=== PATIENT | female | born 1940 | race American Indian/Alaskan Native ===

== ENCOUNTER 2016-07-03 08:35 | Day surgery (SDC) | payer MEDICARE ==
--- NOTE | 2016-07-03 09:04 | Short Stay Summary ---
Short Stay Documentation Date of service: 07/03/16 Narrative H&P: This is a follow-up appointment for this patient, a 75 year old /Black female, after a previous visit on 07/28/2015 , for an evaluation for anemia. She was to have an EGD/Colonoscopy, but has had some issues with CHF/ COPD. She is currently residing in [facility]. She last saw Dr. Mcmillan in 2015. Review of her bloodwork from 03/16 revealed a Hb of 10.0 with an MCV of 87. She is currently on Xarelto. There are no reports of rectal bleeding or black stools. Bhavna denies any abdominal pain, nausea/vomiting, fevers, chills or night sweats. PMHx: Anemia, COPD, CHF PSHx: None All: ASA Meds: See list SocHx: Lives in [place] PE Gen: NAD HEENT: No icterus CVS: RRR Lungs: CTA Abd: Soft, NT Ext: No edema Plan: EGD/Colon, to evaluate for anemia - History H&P: obtained from office - Allergies and Medications Current Medications: Allergies No Known Allergies Allergy (Unverified 08/31/15 10:06) Home Medications Medication Instructions Recorded Confirmed Last Taken Type ALPRAZolam [Xanax TAB] 0.25 mg PO QDAY 01/25/16 01/25/16 Unknown History Acetaminophen 325 mg PO PRN 01/25/16 01/25/16 Unknown History Albuterol Sulfate [Ventolin HFA] 2 puff IH Q4H PRN 01/25/16 01/25/16 Unknown History Atorvastatin Calcium [Lipitor] 20 mg PO QDAY 01/25/16 01/25/16 Unknown History Calcium Carbonate [Oscal] 1,250 mg PO QDAY 01/25/16 01/25/16 Unknown History Ciprofloxacin HCl [Ciprofloxacin 500 mg PO Q12HR #14 tab 01/25/16 Unknown Rx TAB] Docusate Sodium [Colace] 100 mg PO BID PRN 01/25/16 01/25/16 Unknown History Ferrous Sulfate [Feosol] 325 mg PO BID 01/25/16 01/25/16 Unknown History Furosemide [Lasix] 20 mg PO QDAY 01/25/16 01/25/16 Unknown History Haloperidol [Haldol] 5 mg PO BID 01/25/16 01/25/16 Unknown History Insulin Glargine [Lantus] 10 unit SUB-Q QHS 01/25/16 01/25/16 Unknown History Insulin Lispro [Humalog 100 0 units SQ AC 01/25/16 01/25/16 Unknown History UNITS/ML Kwikpen] Ipratropium/Albuterol Sulfate 1 ampul IH Q8HR 01/25/16 01/25/16 Unknown History [Duoneb 0.5 mg-3 mg/3 ml Soln] Melatonin 3 mg PO PRN 01/25/16 01/25/16 Unknown History Metoprolol Tartrate 75 mg PO QDAY 01/25/16 01/25/16 Unknown History Potassium Chloride [K-Dur] 20 meq PO QDAY 01/25/16 01/25/16 Unknown History Rivaroxaban [Xarelto] 0 mg PO QDAY 01/25/16 01/25/16 Unknown History Valsartan [Diovan] 160 mg PO BID 01/25/16 01/25/16 Unknown History amLODIPine [Norvasc] 10 mg PO DAILY 01/25/16 01/25/16 Unknown History hydrALAZINE [Apresoline] 25 mg PO QDAY 01/25/16 01/25/16 Unknown History predniSONE [Deltasone] 20 mg PO QDAY 01/25/16 01/25/16 Unknown History traMADol [Ultram] 50 mg PO Q4HR PRN 01/25/16 01/25/16 Unknown History - Brief post op/procedure progress note Date of procedure: 07/03/16 Pre-op diagnosis: chronic blood loss/anemia Post-op diagnosis: same Procedure: EGD/Colon EGD: Normal esophagus Stomach: Erythematous mucosa diffusely; biopsied Duodenum: Normal; biopsied Colon Poor prep. Small int hemorrhoids. No major lesions seen, but small lesions could've been missed. Rec: 1) Return to NH 2) Resume Xarelto today 3) F/U path 4) Further w/u based on path Anesthesia: MAC Findings: See above note Surgeon: KEV AREVALO Estimated blood loss: minimal Pathology: list (duodenum, antrum) Specimen disposition: to lab Condition: stable - Disposition Condition at discharge: Good Disposition: DISCHARGED TO HOME OR SELFCARE
--- NOTE | 2016-07-03 09:34 | Anesthesia Day of Surgery ---
Anesthesia Day of Surgery - Day of Surgery Patient Examined: Yes Patient H&P Reviewed: Yes Patient is NPO: Yes
--- NOTE | 2016-07-03 09:34 | Anesthesia Consultation ---
Anesthesia Consult and Med Hx Date of service: 07/03/16 - Airway Anesthetic Teeth Evaluation: Poor, Dentures ROM Head & Neck: Adequate Mental/Hyoid Distance: Inadequate Mallampati Class: Class III Intubation Access Assessment: Probably Good - Pulmonary Exam CTA: Yes - Cardiac Exam Cardiac Exam: RRR - Pre-Operative Health Status ASA Pre-Surgery Classification: ASA3 Proposed Anesthetic Plan: MAC - Pulmonary Hx Smoking: Yes (>50 years) Hx Asthma: Yes COPD: Yes (severe, increased resp effort, 2L/Min@ home) - Cardiovascular System Hx Hypertension: Yes Hx Coronary Artery Disease: Yes Hx Cardia Arrhythmia: Yes (afib) - Central Nervous System Hx Psychiatric Problems: Yes (paranoid schizophrenia, dementia) - Gastrointestinal Hx Gastroesophageal Reflux Disease: No - Endocrine Hx Insulin Dependent Diabetes: Yes - Hematic Hx Anemia: Yes Hx Sickle Cell Disease: No - Other Systems Hx Alcohol Use: No Hx Substance Use: No Hx Cancer: No Hx Obesity: No - Additional Comments Anesthesia Medical History Comments: macular degenration
[2016-07-03] MEDS ORDERED: D50W (25GM) IV ONE (09:46)
[2016-07-03] MEDS ORDERED: NACL 0.9% 1000 ML 1,000 ML IV SCH (10:00)
[2016-07-03] MEDS ORDERED: DIPRIVAN 10 MG/ML IV ONE ×2 (10:43)
--- NOTE | 2016-07-03 10:43 | Post Anesthesia Evaluation ---
- Post Anesthesia Evaluation Patient Participated: Yes Airway Patent: Yes Stable Respiratory Function: Yes Nausea/Vomiting: No Temp > 96.8F: Yes Pain Manageable: Yes Adequeate Hydration: Yes Anesthesia Complications: No Block Receding Appropriately: Not Applicable Patient on Ventilator: No
--- NOTE | 2016-07-03 10:46 | Operative Report ---
PROCEDURE PERFORMED: Upper endoscopy with biopsy. PREOPERATIVE DIAGNOSES: Chronic blood loss, anemia. POSTOPERATIVE DIAGNOSES: Chronic blood loss, anemia. ANESTHESIA: Via monitored anesthesia care. DESCRIPTION OF PROCEDURE: After informed consent was obtained, the patient was placed in left lateral decubitus position. Standard Fujinon upper endoscope was inserted into the mouth and advanced to the second portion of duodenum. Scope was then carefully withdrawn and mucosa was carefully examined. FINDINGS: Esophagus: Appeared normal. Stomach: There was evidence of a diffusely erythematous mucosa in the gastric antrum. Cold forceps biopsies were taken and sent for pathology. The pylorus appeared patulous, possibly consistent with prior peptic ulcer disease. No acute ulcer was identified. Duodenum: Appeared normal up to the second portion. Cold forceps biopsies were taken and sent for pathology. COMPLICATIONS: None. ESTIMATED BLOOD LOSS: Minimal. IMPRESSION: A 75-year-old woman with chronic blood loss/anemia, status post upper endoscopy today. Etiology is not identified, but incidental findings of erythematous gastric mucosa was seen. RECOMMENDATIONS: 1. Follow up pathology. 2. Proceed with colonoscopy. [facility]# [id number] PSP/NTS
[2016-07-03 10:56] VITALS: BP 111/79
--- NOTE | 2016-07-03 11:25 | Operative Report ---
PROCEDURE PERFORMED: Colonoscopy. PREOPERATIVE DIAGNOSES: Chronic blood loss, anemia. POSTOPERATIVE DIAGNOSIS: Internal hemorrhoids. ANESTHESIA: Via monitored anesthesia care. DESCRIPTION OF PROCEDURE: After informed consent was obtained, the patient was placed in left lateral decubitus position. Standard Fujinon colonoscope was inserted into the anus and advanced to the cecum, confirmed by the appendiceal orifice and ileocecal valve. Scope was then carefully withdrawn, and mucosa was carefully examined. The quality of prep was poor. FINDINGS: There was evidence of small internal hemorrhoids on retroflexion. The exam was otherwise unremarkable. No major lesions were identified, but given the poor quality of the bowel prep, small lesions may have been missed. COMPLICATIONS: None. ESTIMATED BLOOD LOSS: None. IMPRESSION: A 75-year-old woman with chronic blood loss/anemia, status post upper and lower GI endoscopy today. There was no culprit lesions identified to explain her anemia. RECOMMENDATIONS: 1. [facility]. 2. Resume Xarelto today. 3. Return to office in 1 month, and we will repeat hemoglobin and iron studies at that time. If she is iron deficient, would complete the GI workup with a video capsule endoscopy. JOB# [id number] SHAE/BRANDI
== END 2016-07-03 08:36 | disposition home or self-care (01) ==
LOC: GIO 08:35
PROVIDERS: ATTEND Internal Medicine Gastroenterology
DX: K64.8 Other hemorrhoids (principal); D50.0 Iron deficiency anemia secondary to blood loss (chronic); J45.909 Unspecified asthma, uncomplicated; J44.9 Chronic obstructive pulmonary disease, unspecified; I10 Essential (primary) hypertension; I25.10 Atherosclerotic heart disease of native coronary artery without angina pectoris; I48.91 Unspecified atrial fibrillation; F17.200 Nicotine dependence, unspecified, uncomplicated; E11.9 Type 2 diabetes mellitus without complications; I50.9 Heart failure, unspecified
CPT/HCPCS: 43239; 45378; 82962; 88305; 88342; J2704; J7030